=== PATIENT | female | born 1990 | race Caucasian/White ===

== ENCOUNTER 2016-12-18 09:01 | Emergency (ER) | payer OTHER ==
--- NOTE | ~2016-12-18 | ER ---
PATIENT'S NAME: KENNETH SEVILLA [facility] AGE: 26 Y [address] ROOM: [place] [id number] LOCATION: [facility] ADMIT DATE: 12/18/2016 ER/Outpatient Report DISCHARGE DATE: 12/18/2016 FAMILY PHYSICIAN: Daysi Hatch ATTENDING PHYSICIAN: Kailee Leo TIME OF ARRIVAL: 0901 hours. TIME SEEN: 0909 hours. IDENTIFICATION: A 26-year-old female. CHIEF COMPLAINT: Superficial laceration. HISTORY OF PRESENT ILLNESS: The patient had a box-cutter fall from a height and strike her in the right lower cheek. No other injuries. No active bleeding. Her tetanus is not current, it has been greater than 10 years. ALLERGIES: TO IMITREX. CURRENT MEDICATIONS: Denies. MEDICAL PROBLEMS: Anemia, iron deficiency, hemoglobin is about 11, and her ferritin is 5. She was started on iron, but has not gotten that filled or started yet. She has a history of migraine headaches and she plans to donate a kidney to a family member at the end of January. SOCIAL HISTORY: The patient works at [employer]. Tobacco use denies. Alcohol use, occasional. Drug use, denies. REVIEW OF SYSTEMS: All systems reviewed and negative other than what is noted in the HPI. On review of systems, last menstrual period was 1 week ago and was normal. PHYSICAL EXAMINATION: VITAL SIGNS: Height 5 feet 1 inch, weight 60.4 kg. Blood pressure 117/56, PATIENT'S NAME: KENNETH SEVILLA [facility] AGE: 26 Y [address] ROOM: [place] [address] LOCATION: [facility] ADMIT DATE: 12/18/2016 ER/Outpatient Report DISCHARGE DATE: 12/18/2016 FAMILY PHYSICIAN: Daysi Hatch ATTENDING PHYSICIAN: Kailee Leo pulse 67, respirations 14, temperature 98.2, and sats 98% on room air. GENERAL: A 26-year-old female, in no acute distress. HEENT: Oropharynx benign. Nose: Mucosa pink. No lesions or drainage. Eyes: Pupils equal and reactive to light and accommodation. Extraocular movements intact. Remarkable only for a very superficial 6 mm laceration, not able to gap or pull apart at all, again very superficial, no active bleeding on the right lower face. No surrounding erythema or ecchymosis. No swelling is noted. No tenderness. NEURO: The patient is alert and oriented x4. Cranial nerves 2 through 12 grossly intact. Motor strength 5/5 throughout. Sensation is intact to light touch. EMERGENCY DEPARTMENT COURSE: The patient did check with the transplant center and it is okay with them if she goes ahead and gets Tdap. IMPRESSION AND PLAN: Superficial laceration. PLAN: Wound care discussed. Tetanus was boosted. Follow up with Daysi Hatch as needed. The patient understands and agrees, and no release was given to remain off work. She can return to work as needed. KAILEE LEO MD CAR/modl /[id number] d: 12/18/16 [facility] t: 12/19/16 1541, OUTPATIENT REPORT
[~2016-12-18 09:01] MED LIST: APNO TOP; DERMOPLAST SPRA56 GM TOP; LANSINOH7 GM; LANSINOH7 GM TOP; MOTRIN800 MG PO; PERCOCET 5-3251 EACH PO; PRENATAL 1+1)(P1 TAB PO; TUCKS1 EACH TOP
== END 2016-12-18 09:33 | disposition disaster alternative care site (69) ==
LOC: GACC 09:01
DX: S01.411A Laceration without foreign body of right cheek and temporomandibular area, initial encounter (principal); Z23 Encounter for immunization; Z88.8 Allergy status to other drugs, medicaments and biological substances; W27.8XXA Contact with other nonpowered hand tool, initial encounter

== ENCOUNTER 2017-06-12 18:44 | Emergency (ER) | payer BC ==
--- NOTE | ~2017-06-12 | ER ---
PATIENT'S NAME: KENNETH SEVILLA [facility] AGE: 26 Y [address] ROOM: [place] [address] LOCATION: [facility] ADMIT DATE: 06/12/2017 ER/Outpatient Report DISCHARGE DATE: 06/12/2017 FAMILY PHYSICIAN: Daysi Hatch ATTENDING PHYSICIAN: Rc Wall TIME OF PATIENT ARRIVAL: 1844 hours. TIME OF PATIENT EVALUATION: 1905 hours. CHIEF COMPLAINT: Abdominal pain. HISTORY OF PRESENT ILLNESS: This is a 26-year-old female, who presents to the ER with a 3-1/2 hour history of some midepigastric abdominal pain. She describes it as cramping in nature, and her pain increases with movement. The patient states that she has donated a kidney, and after that procedure, she developed pancreatitis. She states her pain today feels similar to that. She feels like she has been having some chills at home. She does not know if he has been running any fevers. She has had no troubles with urination. No troubles with bowel movements. She has had some nausea. No vomiting. She last ate around 1 o'clock this afternoon. She denies any other problems at this time. ALLERGIES: IMITREX. MEDICATIONS: Please see medication list in nurse's notes. PAST MEDICAL HISTORY: 1. Pancreatitis. 2. Anxiety. PAST SURGICAL HISTORY: She has had her left kidney removed, and carpal tunnel repair. SOCIAL HISTORY: Drinks alcohol socially. Denies any smoking. REVIEW OF SYSTEMS: All systems were reviewed and were negative with the exception of those discussed in the HPI. PATIENT'S NAME: KENNETH SEVILLA [facility] AGE: 26 Y [address] ROOM: [place], [place] [address] LOCATION: [facility] ADMIT DATE: 06/12/2017 ER/Outpatient Report DISCHARGE DATE: 06/12/2017 FAMILY PHYSICIAN: Daysi Hatch ATTENDING PHYSICIAN: Rc Wall PHYSICAL EXAMINATION: VITAL SIGNS: Height 5 feet 1 inch, stated; weight 60.1 kg, taken; blood pressure is 127/58; pulse 69; respirations 16; temperature 98.8 degrees with the temporal scanner; and saturations 99% on room air. Bayron Coma Score is 15. GENERAL: Alert, slightly anxious female, in mild distress. HEENT: Head; normocephalic. Eyes; pupils are equal and reactive to light. She does display moist mucous membranes. LUNGS: Clear to auscultation bilaterally. No wheezes or crackles. HEART: Regular rate and rhythm. ABDOMEN: Soft. She does have tenderness in her midepigastric region with palpation. She has no guarding or rebound tenderness. She has good bowel sounds throughout. No masses are palpated. EXTREMITIES: No clubbing or cyanosis. Has full range of motion of all limbs. LABORATORY DATA: CBC; white count is 8.3, hemoglobin 13.5, platelets 230,000, and ANC is 5.0. CMS; creatinine is 1.3. GFR is 57, otherwise, unremarkable. Amylase is 110, lipase is 320. H. pylori was negative. Urinalysis was negative for any infection. Urine-hCG was negative. 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 Shows a punctate, non-obstructive calculi in the right kidney measuring 1 mm in size. It is nonobstructing. There are no inflammation changes seen around the pancreas, and no free air. No findings of bowel obstruction. IMPRESSION: Mid-epigastric abdominal pain. ASSESSMENT AND PLAN: We did start an IV here in the emergency room. We did give her a liter of IV fluids. Did give her fentanyl for her pain. Zofran 4 mg for her nausea, and a GI cocktail. The patient states that her pain is slightly better. We will dismiss the patient to home. She needs to continue to push clear fluids. I advised a bland diet, if she does eat anything and monitor symptoms closely. We will send her home with prescriptions for [place] and Zofran to use as directed. She needs to follow up with her primary care physician for followup care. The patient understands and agrees with care. ROMI DENG PA-C FOR MD KALLIE BISHOP/korina PATIENT'S NAME: KENNETH SEVILLA [facility] AGE: 26 Y [address] ROOM: [place] [address] LOCATION: ED ADMIT DATE: 06/12/2017 ER/Outpatient Report DISCHARGE DATE: 06/12/2017 FAMILY PHYSICIAN: Daysi Hatch ATTENDING PHYSICIAN: Rc Wall /[id number] d: t: 06/18/17 1626, OUTPATIENT REPORT
[2017-06-12 19:21] LABS: BASOPHIL # 0.1 K/uL (0.0-0.2); BASOPHIL % 0.7 %; EOSINOPHIL # 0.1 K/uL (0.0-0.5); HEMATOCRIT 39.9 % (33.0-46.0); HEMOGLOBIN 13.5 g/dL (11.0-15.0); IMMATURE GRANULOCYTE % 0.1 %; LYMPHOCYTE # 2.4 K/uL (0.8-4.0); LYMPHOCYTE % 28.7 %; MCHC 33.8 gm/dL (32.0-36.5); MCV 85.6 fl (83.0-98.0); MONOCYTE # 0.8 K/uL (0.0-1.0); MPV 10.3 fl (9.4-12.4); NEUTROPHIL % 60.5 %; NRBC % 0 /100WBC (0-0.00); PLATELET COUNT 230 K/uL (150-450); RBC 4.66 M/uL (3.50-5.00); RDW-CV 13.8 % (11.9-14.6); WBC 8.3 K/uL (4.0-11.0)
[2017-06-12 19:42] LABS: ALBUMIN 4.4 gm/dL (3.5-5.0); ANION GAP 12.7 (10.0-19.0); CALCIUM 9.2 mg/dL (8.5-10.5); CREATININE 1.3 mg/dL (0.5-1.1); POTASSIUM 3.7 mMol/L (3.7-5.1); TOTAL BILIRUBIN 0.4 mg/dL (0.0-1.5); TOTAL PROTEIN 8.2 g/dL (6.0-8.4)
[2017-06-12 19:58] LABS: BILIRUBIN URINE NEGATIVE (NEGATIVE); BLOOD URINE NEGATIVE /UL (NEGATIVE); COLOR URINE YELLOW (YELLOW); GLUCOSE URINE NEGATIVE (NEGATIVE); KETONE URINE NEGATIVE (NEGATIVE); LEUKOCYTES URINE NEGATIVE /UL (NEGATIVE); NITRITE URINE NEGATIVE (NEGATIVE); PROTEIN URINE NEGATIVE (NEGATIVE); SPEC GRAVITY URINE 1.005 (1.003-1.035); TURBIDITY URINE CLEAR (CLEAR); UROBILINOGEN URINE NORMAL (NORMAL)
== END 2017-06-12 21:35 | disposition disaster alternative care site (69) ==
LOC: GMED 18:44
PROVIDERS: Emergency Medicine
DX: R10.13 Epigastric pain (principal); F41.9 Anxiety disorder, unspecified; Z98.890 Other specified postprocedural states; Z90.5 Acquired absence of kidney; Z88.8 Allergy status to other drugs, medicaments and biological substances
CPT/HCPCS: J2405; J3010; J7030

== ENCOUNTER → 2017-06-18 | Outpatient (CLI) | payer BC | END | disposition disaster alternative care site (69) | LOC: GRAD 06-17 11:00 | DX: R10.11 Right upper quadrant pain (principal) | CPT/HCPCS: A9537 ==